=== PATIENT | female | born 1935 | race Caucasian/White ===

== ENCOUNTER → 2019-01-06 09:00 | Outpatient (CLI) | payer MEDICARE, SELFPAY ==
--- NOTE | 2019-01-06 | DI.CT.S_ITS ---
PROCEDURE: CT CHEST W CON INDICATIONS: PULMONARY NODULE, SHORTNESS OF BREATH TECHNIQUE: After the administration of intravenous contrast, 5 mm thick sections acquired from the pulmonary apices to the posterior costophrenic angles. 1 mm axial lung, 5 mm thick coronal and sagittal reformats and 7 mm axial MIP were acquired. For radiation dose reduction, the following was used: automated exposure control, adjustment of mA and/or kV according to patient size. COMPARISON: [facility], CT, THORAX WITHOUT CONTRAST, 12/29/2016, 9:56. FINDINGS: Image quality: Excellent. Lungs and pleura: No definite acute air space opacities, and the nodular radiodensity at the right midlung is again seen, also having been present in January of 2016 and is December of 2016. This is currently best seen on CT series 4 image 23. There has been a small degree of interval worsening any micronodular pattern bilaterally of scattered foci of tree in bud airspace disease, and mild peribronchial soft tissue prominence is again seen consistent with mild chronic bronchitis. No pleural effusions or pneumothorax. Central and peripheral airways are patent and normal in caliber. Mediastinum: Heart size is normal. No pericardial effusion. No mediastinal or hilar adenopathy by size criteria. Thoracic aorta and central pulmonary arteries are normal in size. Esophagus is normal in caliber. No hiatal hernia. Bones and chest wall: No suspicious bony lesions. No vertebral body compression fractures. No axillary or supraclavicular adenopathy by size criteria. Thyroid gland is not well-seen. Abdomen: Visualized upper abdominal solid organs appear normal. Upper abdominal bowel loops are normal in caliber. IMPRESSION: 1. Within the lung parenchyma bilaterally there has been a small degree of interval worsening of tree in bud pattern of micronodular change scattered within the lungs. The appearance is suggestive of old granulomatous disease. The nodule in the right midlung was largest on the comparison study 02/15/16 and now measures 5 mm in maximal dimension. This had measured 7 mm 02/15/16 and 6 mm 12/29/16. The appearance is consistent with granulomatous disease involuting rather than underlying neoplasm. 2. There is a small degree of peribronchial soft tissue prominence within the lung parenchyma consistent with mild chronic bronchitis. 3. No pulmonary embolus found. Dictated by: Otf Wharton M.D. on 01/06/2019 at 14:16 Approved by: Otf Wharton M.D. on 01/06/2019 at 14:25
[2019-01-06 10:26] LABS: BUN Creatinine Ratio 25.7 (6-22); Blood Urea Nitrogen 18 mg/dL (7-17); Estimated Glomerular Filt Rate > 60.0 mL/min (>60)
== END ==
PROVIDERS: Visit Provider Internal Medicine Critical Care Medicine
DX: R91.1 Solitary pulmonary nodule (principal); R06.02 Shortness of breath; J42 Unspecified chronic bronchitis; Z01.812 Encounter for preprocedural laboratory examination
CPT/HCPCS: 36415; 71260; 82565; 84520; Q9967

== ENCOUNTER → 2023-01-31 10:49 | Outpatient (CLI) | payer OTHER, SELFPAY ==
--- NOTE | 2023-01-31 | DI.CT.S_ITS ---
PROCEDURE: CT CHEST WO CON INDICATIONS: Solitary pulmonary nodule TECHNIQUE: Noncontrast 5 mm thick sections acquired from the pulmonary apices to the posterior costophrenic angles. 1 mm lung window, 5 mm thick coronal and sagittal and 7 mm axial MIP reformats were then acquired. For radiation dose reduction, the following was used: automated exposure control, adjustment of mA and/or kV according to patient size. COMPARISON: [facility], CT, CT CHEST W CON, 01/06/2019, 10:58. FINDINGS: Lungs and pleura: Previously demonstrated 5 mm nodule at the right upper lobe (3/112) is not significantly changed since before. An adjacent 9 mm nodule (3/115) is new compared to the prior study. A 4 mm left lower lobe subpleural nodule (3/231) also appears new. A 5 mm left lower lobe nodule (3/166) also appears new. Scattered regions of centrilobular/tree-in-bud micronodularity are present within both lungs. No pleural effusion. Areas of middle lobe and lingular atelectasis and or scarring present as before. Mediastinum: No pericardial effusion. Multivessel coronary artery calcifications and/or stents. Thoracic aorta and central pulmonary arteries are normal in size. Esophagus is normal in caliber. Possible small hiatal hernia. Bones and chest wall: Multilevel degenerative change of the visualized spine. No axillary or supraclavicular adenopathy by size criteria. Abdomen: Visualized upper abdominal solid organs and bowel loops appear normal in the absence of contrast. IMPRESSION: 1. Previously described 5 mm right upper lobe nodule is not significantly changed since the prior exam. 2. Multiple new pulmonary nodules are present however, nonspecific. Could consider further evaluation with PET-CT or follow-up CT of the chest to assess for interval change, for example in 3-6 months or other interval at clinical discretion. 3. Scattered regions of centrilobular/tree-in-bud micronodularity present, suggestive of an infectious/inflammatory etiology such as aspiration and/or infectious bronchiolitis. Non tuberculosis mycobacterial infection also possible. Dictated by: García Donato M.D. on 01/31/2023 at 16:37 Approved by: García Donato M.D. on 01/31/2023 at 16:53
== END ==
PROVIDERS: PCP Family Medicine; Referring Provider Family Medicine; Visit Provider Family Medicine
DX: R91.8 Other nonspecific abnormal finding of lung field (principal)
CPT/HCPCS: 71250

== ENCOUNTER → 2023-06-14 13:56 | Outpatient (CLI) | payer OTHER, SELFPAY ==
--- NOTE | 2023-06-14 | DI.CT.S_ITS ---
PROCEDURE: CT CHEST WO CON INDICATIONS: follow up for lung nodule TECHNIQUE: Noncontrast 2.0-2.5 mm thick sections acquired from the pulmonary apices to the posterior costophrenic angles. 7 mm thick axial MIP and 5 mm coronal and sagittal reformats were then acquired. For radiation dose reduction, the following was used: automated exposure control, adjustment of mA and/or kV according to patient size. COMPARISON: [facility], CT, THORAX WITHOUT CONTRAST, 02/15/2016, 13:50. [facility], CT, THORAX WITHOUT CONTRAST, 12/27/2012, 12:19. [facility], CT, THORAX WITH CONTRAST, 09/11/2011, 14:17. [facility], CT, CT CHEST W CON, 01/06/2019, 10:58. [facility], CT, CT CHEST WO CON, 01/31/2023, 11:04. FINDINGS: Image quality: Diagnostic. Lower Neck: No enlarged lymph nodes. Thyroid: No thyroid nodules which require sonographic follow up, per consensus guidelines. Axillae: No enlarged lymph nodes. Chest Wall: Unremarkable. Bones: There is a small sclerotic focus in T6 vertebral body, probably a bone island. 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 Lungs and Pleura: There are numerous lung nodules, not significant changed. Reference nodules are listed in the following: - 1.1 cm; bilobed, spiculated; right upper lobe; series 3, image 116. - 0.6 cm; right upper lobe; series 3, image 113. Multiple tiny nodules or nodular infiltrates with tree-in-bud configuration suggesting infectious etiology. Bronchiectasis in right middle lobe and lingula with associated pleural parenchymal scars and atelectasis. No pneumothorax or pleural effusions. No consolidation Heart: Heart size is normal. No pericardial effusion. Mild coronary artery atherosclerosis. Thoracic Vessels: The aorta and pulmonary arteries demonstrate normal size. Mediastinum and Cyndi: No enlarged lymph nodes. Esophagus: No wall thickening. Small hiatal hernia. Upper Abdomen: Visualized upper abdomen solid organs and bowel loops appear normal. IMPRESSION: 1. Numerous pulmonary nodules are present bilaterally, not significant changed. A bilobed spiculated nodule in the right upper lobe measures 1.1 cm, suspicious. Consider PET-CT for further evaluation. 2. Multiple tiny nodules or nodular infiltrates with tree-in-bud configuration suggesting inflammatory etiology such as mycobacterial infection. Recommend clinical correlation. 3. Pleural parenchymal scars and atelectasis with associated bronchiectasis in right middle lobe and lingula. Fleischner Society criteria for SOLID lung nodule followup. Nodule size (mm)Low-risk patientHigh-risk patient<6 (single or multiple)No routine followup.Optional CT at 12 months. 6-8 (single or multiple)CT at 6-12 months, then optional CT at 18-24 mo.CT at 6-12 months, then CT at 18-24 months. >8 (single)CT at 3 months, PET-CT, or biopsy. Same as for low-risk pts. >8 (multiple)CT at 3-6 months, then optional CT at 18-24 mo.CT at 3-6 months, then CT at 18-24 months. Fleischner Society criteria for SUB-SOLID lung nodule followup. Solitary pure ground-glass nodules<6 mm (ground glass or part solid)No followup needed. 6 mm or larger (ground glass)CT at 6-12 months to confirm persistence, then CT every 2 years until 5 years.6 mm or larger (part solid)CT at 3-6 months to confirm persistence, then annual CT until 5 years if unchanged and solid component remains <6 mm. Multiple sub-solid nodules<6 mmCT at 3-6 months, then CT consider at 2 & 4 years for high risk patients. [address] at 3-6 months. Subsequent management based on most suspicious lesions. Recommendations do not apply to lung cancer screening, patients with immunosuppression, or patients with known primary cancer. Dictated by: Cate Arias M.D. on 06/14/2023 at 19:06 Approved by: Cate Arias M.D. on 06/15/2023 at 9:35
== END ==
PROVIDERS: PCP Family Medicine; Referring Provider Family Medicine; Visit Provider Family Medicine
DX: D38.1 Neoplasm of uncertain behavior of trachea, bronchus and lung (principal); R91.8 Other nonspecific abnormal finding of lung field; J47.9 Bronchiectasis, uncomplicated; J98.4 Other disorders of lung; J98.11 Atelectasis
CPT/HCPCS: 71250

== ENCOUNTER → 2024-02-25 13:41 | Outpatient (CLI) | payer MEDICARE, SELFPAY ==
--- NOTE | 2024-02-25 | DI.ECHO.S_ITS ---
[facility] : : [id number] : : [place] : : [id number] : : Phone: [phone] Echocardiogram Report + + :Name: JOE ROMERO I Study Date: 02/25/2024 Height: 60 in : :[facility] ReadingLocation: Weight: 126 lb : : Gender: Female BSA: 1.5 m2 : :: 1935 Age: 88 yrs BP: 158/85 mmHg: :Reason For Study: NONRHEUMATIC AORTIC VALVE INSUFFICIENCY : :Ordering Physician: ANTOINETTE, : :WALLY Performed By: Amor Lynne : :Referring: WALLY CURRY : + + Interpretation Summary The left ventricle is normal in size and wall thickness. The left ventricular ejection fraction is normal. The ejection fraction is estimated to be 55-60%. No significant change in LVEF from the previous study. The right ventricle is normal size. The right ventricular systolic function is normal. There is mild mitral regurgitation. Compared to the prior echo study, there has been no change in the severity of mitral regurgitation. There is mild aortic regurgitation. Compared to the prior echo study, there has been no change in the severity of aortic regurgitation. There is mild tricuspid regurgitation. Compared to the prior echo exam, there has been no change in TR severity. The right ventricular systolic pressure is estimated to be at least 38.6 mmHg based on an estimated right atrial pressure of 3 mm Hg. Previously 23 mmHg. Moderate atherosclerotic plaque(s) in the aortic arch. Previously mild. Procedure: A two-dimensional transthoracic echocardiogram with color flow and Doppler was performed. The study quality was technically adequate. Comparison is made with the echocardiogram of 07/15/2019. The patient was in sinus rhythm with heart rates between 55-60 bpm during the exam. Left Ventricle: The left ventricle is normal in size and wall thickness. There is no thrombus. The ejection fraction is estimated to be 55-60%. The left ventricular ejection fraction is normal. There has been no significant change since the previous exam. There are no focal wall motion abnormalities. Diastolic parameters suggest a relaxation abnormality of the left ventricle, consistent with probable normal filling pressures. Right Ventricle: The right ventricle is normal size. The right ventricular systolic function is normal. Atria: The left atrial size is normal. There has been no significant change since the previous study. Right atrial size is normal. The interatrial septum grossly appears intact with no obvious evidence for an atrial septal defect. Mitral Valve: MAC. There is mild mitral annular calcification. The mitral valve leaflets appear mildly thickened, but open well. There is no mitral valve stenosis. There is mild mitral regurgitation. Compared to the prior echo study, there has been no change in the severity of mitral regurgitation. Aortic Valve: The aortic valve is trileaflet. The aortic valve is slightly calcified. There is no aortic valve stenosis. There is mild aortic regurgitation. Compared to the prior echo study, there has been no change in the severity of aortic regurgitation. Tricuspid Valve: The tricuspid valve is normal. There is no tricuspid stenosis. There is mild tricuspid regurgitation. The right ventricular systolic pressure is estimated to be at least 38.6 mmHg based on an estimated right atrial pressure of 3 mm Hg. Compared to the prior echo exam, there has been no change in TR severity. Pulmonic Valve: The pulmonic valve is not well visualized. There has been no significant change since the previous study. Great Vessels: The aortic root is normal size. The dimensions of the ascending aorta are normal. Moderate atherosclerotic plaque(s) in the aortic arch. The IVC is of normal diameter and collapses greater than 50% with a sniff. This suggests a low right atrial pressure of 3 mm Hg. Pericardium/ Pleura There is no pericardial effusion. There is no pleural effusion. MMode/2D Measurements & Calculations LVIDd: 4.9 cm LVOT diam: 2.1 cm LVIDs: 3.3 cm Ao root diam: 3.3 cm FS: 33.1 % asc Aorta Diam: 3.2 cm IVSd: 0.84 cm LVPWd: 0.80 cm LV aguilar. diameter/BSA (cm/m^2): 3.2 LV sys. diameter/BSA (cm/m^2): 2.2 LA A2 area: 16.5 cm2 RA long axis: 4.7 cm LA A4 area: 16.9 cm2 RA area: 14.1 cm2 LA length (vol): 5.2 cm RA vol: 36.1 ml LA vol: 45.4 ml RA : 23.5 ml/m2 LA vol index: 29.6 ml/m2 IVC diam: 1.3 cm RVD1 (basal): 3.5 cm RVD2 (mid): 2.9 cm TAPSE: 2.3 cm Doppler Measurements & Calculations Ao V2 max: 116.6 cm/sec LVOT Max Danielito: 97.3 cm/sec Ao V2 mean: 89.0 cm/sec LV V1 max P.8 mmHg Ao max P.4 mmHg LV V1 VTI: 23.3 cm Ao mean P.4 mmHg WILFRIDO(I,D): 3.0 cm2 Ao V2 VTI: 26.7 cm WILFRIDO(V,D): 2.8 cm2 sev ratio: 0.87 WILFRIDO indexed to BSA (cm^2/m^2): 1.9 AI P1/2t: 621.3 msec AI dec slope: 159.6 cm/sec2 MV E max danielito: 61.6 cm/sec TR max danielito: 298.3 cm/sec MV A max danielito: 72.8 cm/sec TR max P.6 mmHg MV E/A: 0.85 PA V2 max: 70.8 cm/sec Med Peak E' Danielito: 5.4 cm/sec PA V2 mean: 52.0 cm/sec E/E' med: 11.5 PA mean P.2 mmHg Lat Peak E' Danielito: 9.4 cm/sec PA pr(Accel): 31.0 mmHg E/E' lat: 6.6 E/e' average: 9.0 MV dec time: 0.26 sec SV(LVOT): 78.9 ml Reading Physician:03:01 PM
== END ==
LOC: ECHO 13:43
PROVIDERS: PCP Family Medicine; Referring Provider Internal Medicine Cardiovascular Disease; Visit Provider Internal Medicine Cardiovascular Disease
DX: I08.3 Combined rheumatic disorders of mitral, aortic and tricuspid valves (principal); I70.0 Atherosclerosis of aorta
CPT/HCPCS: 93306